=== PATIENT | male | born 1945 | race Caucasian/White ===

== ENCOUNTER 2019-05-16 09:33 | Emergency (ER) | payer MEDICARE, SELFPAY ==
[2019-05-16 09:47] VITALS: BP 147/65; PULSE 66; RESP 16; TEMP 37.4; O2SAT 98
--- NOTE | 2019-05-16 10:36 | ED.GENADULT ---
HPI - General Adult General Chief complaint: Upper Respiratory Infection Stated complaint: Chest congestion/Cough/Mucus/Ears Ringing Time Seen by Provider: 05/16/19 10:36 Source: patient and RN notes reviewed Mode of arrival: ambulatory Limitations: no limitations History of Present Illness HPI narrative: 73-year-old male presents with complains of upper respiratory infection, congestion, dry cough, wheezing, tinnitus, and intermittent headaches (not the worst of his life) for 2 days. Mucinex and Flonase without relief. Constant dry cough with intermittent productive cough (john phlegm). Rhinorrhea and nasal congestion. Denies sore throat. No high fevers, drooling, neck or throat swelling. No chest pain, or shortness of breath. No exacerbation factors. Denies nausea, vomiting, and abdominal pain. Tolerating liquids well. Some parts of this dictation were generated by voice recognition software and may contain typographical and/or grammatical inaccuracies. Related Data Home Medications Medication Instructions Recorded Confirmed allopurinol 300 mg tablet 300 mg PO DAILY 03/06/19 B 12 1,000 mcg DAILY 05/16/19 Fish Oil 1,200 mg DAILY 05/16/19 ICaps AREDS2 05/16/19 Methycelluse Fiber DAILY 05/16/19 aspirin 05/16/19 fluticasone propionate INTRANASAL 05/16/19 furosemide 05/16/19 gabapentin 05/16/19 glimepiride mg 05/16/19 levothyroxine 05/16/19 magnesium 05/16/19 multivitamin 05/16/19 naratriptan 05/16/19 pioglitazone mg 05/16/19 potassium chloride meq PO 05/16/19 pravastatin 05/16/19 rivaroxaban [Xarelto] mg 05/16/19 sitagliptin [Januvia] mg 05/16/19 sotalol 05/16/19 Allergies Allergy/AdvReac Type Severity Reaction Status Date / Time No Known Allergies Allergy Mild Unverified 12/06/17 10:08 Review of Systems Review of Systems: Narrative: CONSTITUTIONAL: Denies fever, chills, sweats. EYES: Denies visual changes, redness, discharge. ENT: Denies rhinorrhea, congestion, tinnitus. Denies sore throat, otalgia. CARDIOVASCULAR: Denies chest pain, palpitations, edema. RESPIRATORY: Denies dyspnea. Complains of dry cough, wheezing, intermittent productive cough. GASTROINTESTINAL: Denies abdominal pain, nausea, vomiting, diarrhea. GENITOURINARY: Denies dysuria, hematuria, abnormal discharge. SKIN: Denies rash or itching. MUSCULOSKELETAL: Denies acute back pain, joint pain, or myalgia. NEUROLOGIC: Denies numbness or focal weakness. Complains of intermittent TORRES. PSYCHIATRIC: Denies anxiety or depression. All systems reviewed & are unremarkable except as noted in HPI and below. [facility] Past Medical History Medical History (Updated 05/17/19 @ 00:00 by Lorri Carlin) Diabetes Hypertension Surgical History Surgical History (Updated 05/24/19 @ 00:36 by LINDA Wills) History of adenoidectomy History of cholecystectomy History of tonsillectomy Family History Family History Mother Cerebrovascular accident, Onset Age: 69 Father Family history of lung cancer Family history of malignant neoplasm, Onset Age: 77 Social History Social History (Updated 05/16/19 @ 10:46 by LINDA Wills) Smoking status: Never smoker Second hand tobacco smoke exposure: No Alcohol intake: current Substance use: never Additional living arrangements comments: Gender identity (if verbalized by the patient): Male Comments At time of signature, agree with nurse past medical, surgical, social, and family history. There is no relevant family history pertinent to the presenting complaint. Exam Narrative: Exam Narrative: GENERAL: This is a well-nourished, well-developed patient, in no apparent distress. Talks in full sentences and ambulates with steady gait without dyspnea. HEAD: normocephalic, atraumatic. EYES: PERRL. Sclera clear/white. Vision is grossly intact. EARS: E
== END 2019-05-16 10:50 | disposition home or self-care (01) ==
PROVIDERS: Emergency Provider Nurse Practitioner Family; PCP Emergency Medicine
DX: J40 Bronchitis, not specified as acute or chronic (principal); E11.9 Type 2 diabetes mellitus without complications; I10 Essential (primary) hypertension
CPT/HCPCS: 99213; G0463

== ENCOUNTER 2020-09-17 14:27 | Outpatient (CLI) | payer MEDICARE, SELFPAY ==
--- NOTE | ~2020-09-17 | MR_ITS ---
EXAMINATION: MR lumbar spine wo con EXAM DATE: 09/17/2020 15:29 INDICATION: M54.9 - Dorsalgia, unspecified dorsalgia. Bilateral leg pain. TECHNIQUE: Multi-sequential, multiplanar MR images of the lumbar spine were obtained without contrast . Sagittal T1, T2, T2 fat saturation images. Axial T2 weighted images. There is no prior study for comparison. FINDINGS: Mild diffuse lumbar disc disease. The conus medullaris terminates at the L1/2 level and has normal signal intensity and morphology. There is nerve root redundancy above the L3-4 level, likely being caused by L3-4 moderate to severe central canal stenosis. The vertebral bodies are aligned in the AP dimension. There is a small hemangioma within the L1 vertebral body. Paraspinal soft tissue is unremarkable. Level by level evaluation: T12-L1: Disc does not extend beyond the endplate margin. Facet arthropathy: Mild. Neural foraminal stenosis: No stenosis. Central canal stenosis: No stenosis. L1-L2: Disc does not extend beyond the endplate margin. Facet arthropathy: Mild. Neural foraminal stenosis: No stenosis. Central canal stenosis: No stenosis. L2-L3: There is a mild diffuse disc bulge. Facet arthropathy: Mild. Neural foraminal stenosis: No stenosis. Central canal stenosis: Mild. L3-L4: There is a moderate diffuse disc bulge. Facet arthropathy: Severe . Ligamentum flavum enlargement. Neural foraminal stenosis: Mild to moderate bilateral. Central canal stenosis: Moderate to severe. L4-L5: There is a mild to moderate diffuse disc bulge. Facet arthropathy: Severe . Ligamentum flavum enlargement. Neural foraminal stenosis: Moderate to severe bilateral. Central canal stenosis: Moderate to severe. L5-S1: There is a mild to moderate diffuse disc bulge. Facet arthropathy: Severe. Neural foraminal stenosis: Moderate right, mild to moderate left. Central canal stenosis: Mild. IMPRESSION: 1. L3-4 and L4-5 moderate to severe central canal stenosis, nerve root redundancy above. 2. L4-5 moderate to severe bilateral neural foraminal stenosis. 3. Advanced lower lumbar facet arthropathy Reviewed, dictated and finalized at location B. IMPRESSION: 1. L3-4 and L4-5 moderate to severe central canal stenosis, nerve root redunda ncy above. 2. L4-5 moderate to severe bilateral neural foraminal stenosis. 3. Advanced lower lumbar facet arthropathy
== END 2020-09-17 14:28 | disposition home or self-care (01) ==
PROVIDERS: PCP Emergency Medicine; Visit Provider Emergency Medicine
DX: M54.16 Radiculopathy, lumbar region (principal); R29.898 Other symptoms and signs involving the musculoskeletal system
CPT/HCPCS: 72148